=== PATIENT | female | born 1990 | race Caucasian/White ===

== ENCOUNTER 2017-09-13 13:47 | Inpatient (IN) | payer OTHER ==
[2017-09-13 17:25] VITALS: BMI 19.7
[2017-09-13] MEDS ORDERED: MAGNESIUM HYDROX 2400MG/30ML ORAL SUSPENSION 30 ML CUP PO PRN (19:07)
[2017-09-13] MEDS ORDERED: ACETAMINOPHEN 325 MG TABLET (FP) PO PRN (19:07)
[2017-09-13] MEDS ORDERED: METHADONE HCL 10 MG TABLET (FOR DETOX USE ONLY) PO ONE ×2 (19:07→23:00)
[2017-09-13] MEDS ORDERED: LOPERAMIDE HCL 2 MG CAPSULE PO PRN (19:07)
[2017-09-13] MEDS ORDERED: MAG HYDROX/AL HYDROX/SIMETH 30 ML UNIT-DOSE CUP PO PRN (19:07)
[2017-09-13] MEDS ORDERED: NICOTINE POLACRILEX 4 MG GUM BUC PRN (19:07)
[2017-09-13] MEDS ORDERED: guaiFENesin/D-METHORPHAN HB 10 ML UNIT-DOSE CUPS PO PRN (19:07)
[2017-09-13] MEDS ORDERED: P-EPHED 60MG/TRIPROLIDI 2.5MG TABLET PO PRN (19:07)
[2017-09-13] MEDS ORDERED: MENTHOL/PHENOL 1 EACH UD MM PRN (19:07)
[2017-09-13] MEDS ORDERED: MAGNESIUM CITRATE 300 ML BOTTLE PO PRN (19:07)
[2017-09-13] MEDS ORDERED: IBUPROFEN 400 MG TABLET (FP) PO PRN (19:07)
--- NOTE | 2017-09-13 19:07 | HP ---
COWS - Scale Resting Pulse: 1= [place] 81-100 Sweatin= Chills/Flushing Restless Observation: 3= Extraneous Movement Pupil Size: 0= Normal to Room Light Bone or Joint Aches: 2= Severe Diffuse Aches Runny Nose/ Eye Tearin= Runny Nose/Eyes GI Upset > 30mins: 2= Nausea/Diarrhea Tremor Observation: 2= Slight Tremor Visible Yawning Observation: 0= None Anxiety or Irritability: 2=Irritable/Anxious Goose Flesh Skin: 0=Smooth Skin COWS Score: 15 Admission [facility] Chief Complaint: withdrawal sx Allergies/Adverse Reactions: Allergies Allergy/AdvReac Type Severity Reaction Status Date / Time No Known Allergies Allergy Verified 09/13/17 17:59 History of Present Illness: 27 years old female with long history of heroin nicotine dependence has depression is admitted to detox Exam Limitations: No Limitations - Ebola screening Have you traveled outside of the country in the last 21 days: No (N) Have you had contact with anyone from an Ebola affected area: No Have you been sick,other than usual withdrawal symptoms: No Do you have a fever: No - Review of Systems Constitutional: Loss of Appetite, Changes in sleep, Unintentional Wgt. Loss, Unexplained wgt Loss EENT: reports: No Symptoms Reported Respiratory: reports: No Symptoms reported Cardiac: reports: No Symptoms Reported GI: reports: Diarrhea, Nausea, Poor Appetite, Poor Fluid Intake, Abdominal cramping : reports: No Symptoms Reported Integumentary: reports: Change in Color (both inner elbows) Neuro: reports: Tremors Endocrine: reports: No Symptoms Reported Hematology: reports: No Symptoms Reported Psychiatric: reports: Judgement Intact, Orientated x3, Anxious, Depressed Other Systems: Reviewed and Negative Patient History - Patient Medical History Hx Anemia: No Hx Asthma: No Hx Chronic Obstructive Pulmonary Disease (COPD): No Hx Cancer: No Hx Cardiac Disorders: No Hx Congestive Heart Failure: No Hx Hypertension: No Hx Hypercholesterolemia: No Hx Pacemaker: No HX Cerebrovascular Accident: No Hx Seizures: No Hx Dementia: No Hx Diabetes: No Hx Gastrointestinal Disorders: No Hx Liver Disease: No Hx Genitourinary Disorders: No Hx Sexually Transmitted Disorders: No Hx Renal Disease (ESRD): No Hx Thyroid Disease: No Hx Human Immunodeficiency Virus (HIV): No Hx Hepatitis C: No Hx Depression: Yes Hx Suicide Attempt: No Hx Bipolar Disorder: No Hx Schizophrenia: No - Patient Surgical History Past Surgical History: No Hx Neurologic Surgery: No Hx Cataract Extraction: No Hx Cardiac Surgery: No Hx Lung Surgery: No Hx Breast Surgery: No Hx Breast Biopsy: No Hx Abdominal Surgery: No Hx Appendectomy: No Hx Cholecystectomy: No Hx Genitourinary Surgery: No Hx Section: No Hx Orthopedic Surgery: No Hx Hysterectomy: No - PPD History Previous Implant?: Yes Documented Results: Negative w/o proof Implanted On Prior [facility] Admission?: No PPD to be Administered?: Yes - Reproductive History Patient is a Female of Child Bearing Age (11 -55 yrs old): Yes Last Menstrual Period: 08/13/17 Patient : No - Smoking Cessation Smoking history: Current every day smoker Have you smoked in the past 12 months: Yes Aproximately how many cigarettes per day: 20 Cigars Per Day: 0 Hx Chewing Tobacco Use: No Initiated information on smoking cessation: Yes 'Breaking Loose' booklet given: 09/13/17 - Substance & Tx. History Hx Alcohol Use: No Hx Substance Use: Yes Substance Use Type: Cocaine Hx Substance Use Treatment: No (first detox) - Substances Abused Heroin Route: Injection Frequency: Daily Amount used: 20 bags Age of first use: 22 Date of Last Use: 09/13/17 Cocaine Route: Injection Frequency: Daily Amount used: 2gm Age of first use: 27 Date of Last Use: 09/12/17 Family Disease History - Family Disease History Family Disease History: Heart Disease: Father (), Respiratory: Mother, Other: Father Admission Physical Exam BHS - Vital Signs Vital Signs: Vital Signs - 24 hr 09/13/17 17:24 Temperature 97.9 F Pulse Rate 82 Respiratory 18 Rate Blood Pressure 113/66 - Physical General Appearance: Yes: Appropriately Dressed, Mild Distress, Thin, Tremorous, Irritable, Sweating, Anxious HEENTM: Yes: Hearing grossly Normal, Normal ENT Inspection, Normocephalic, Normal Voice Respiratory: Yes: Chest Non-Tender, Lungs Clear, Normal Breath Sounds, No Respiratory Distress, No Accessory Muscle Use Neck: Yes: Supple, Trachea in good position Breast: Yes: Breasts Symetrical Cardiology: Yes: Regular Rhythm, Regular Rate, S1, S2 Abdominal: Yes: Non Tender, Soft Genitourinary: Yes: Within Normal Limits Back: Yes: Normal Inspection Musculoskeletal: Yes: full range of Motion, Gait Steady, Back pain, Muscle Pain Extremities: Yes: Normal Range of Motion, Non-Tender, Tremors Neurological: Yes: Fully Oriented, Alert, Motor Strength 5/5, Normal Response, Depressed Affect Integumentary: Yes: Warm, Track [place] Lymphatic: Yes: Within Normal Limits - Diagnostic (1) Opioid dependence with withdrawal Current Visit: Yes Status: Acute (2) Nicotine dependence Current Visit: Yes Status: Acute Qualifiers: Nicotine product type: cigarettes Substance use status: in withdrawal Qualified Code(s): F17.213 - Nicotine dependence, cigarettes, with withdrawal (3) Weight loss Current Visit: Yes Status: Acute (4) Depression (emotion) Current Visit: Yes Status: Suspected Qualifiers: Depression Type: dysthymia Qualified Code(s): F34.1 - Dysthymic disorder Cleared for Admission [facility] - Detox or Rehab [facility] Level of Care: Medically Managed Detox Regimen/Protocol: Methadone [facility] Breath Alcohol Content Breath Alcohol Content: 0 Urine Pregancy Test - Result Urine Test Results: Negative- NO Line Present Urine Drug Screen - Results Drug Screen Negative: No Urine Drug Screen Results: MARIO-Cocaine, OPI-Opiates, OXY-Oxycodone
[2017-09-13] MEDS: diazePAM 5 MG TABLET PO PRN (21:12)
[2017-09-13] MEDS: THIAMINE HCL 100 MG TABLET (FP) PO SCH (22:32)
[2017-09-13] MEDS: METHOCARBAMOL 500 MG TABLET PO SCH (22:33)
[2017-09-13 23:04] LABS: URINE APPEARANCE TURBID; URINE BILIRUBIN NEGATIVE (NEGATIVE); URINE BLOOD NEGATIVE (NEGATIVE); URINE COLOR YELLOW; URINE GLUCOSE (UA) NEGATIVE (NEGATIVE); URINE KETONE TRACE (NEGATIVE); URINE LEUK ESTERASE TRACE (NEGATIVE); URINE NITRITE NEGATIVE (NEGATIVE); URINE PROTEIN NEGATIVE (NEGATIVE)
[2017-09-14 00:24] LABS: EPI CELLS RARE /HPF (FEW); URINE BACTERIA MODERATE /hpf (NONE SEEN); URINE HYALINE CAST 14 /lpf; URINE MUCUS FEW; YEAST FEW
[2017-09-14] MEDS: METHOCARBAMOL 500 MG TABLET PO SCH ×3 (05:23→22:09)
[2017-09-14] MEDS: diazePAM 5 MG TABLET PO PRN ×2 (05:24→18:34)
[2017-09-14] MEDS ORDERED: METHADONE HCL 10 MG TABLET (FOR DETOX USE ONLY) PO ONE (10:00)
[2017-09-14 10:06] LABS: HEMATOCRIT 35.8 % (32.4-45.2); HEMOGLOBIN 11.3 GM/dL (10.7-15.3); MCH 27.6 pg (25.7-33.7); MCHC 31.6 g/dl (32.0-36.0); MEAN CELL VOLUME 87.2 fl (80-96); MEAN PLT VOLUME 8.8 fl (7.5-11.1); PLATELET COUNT 242 K/MM3 (134-434); RBC 4.11 M/mm3 (3.60-5.2); RDW 15.8 % (11.6-15.6); WHITE BLOOD COUNT 5.9 K/mm3 (4.0-10.0)
[2017-09-14] MEDS: PRENATAL VITAMINS W/ FOLIC ACID TABLET (FP) PO SCH (10:11)
[2017-09-14] MEDS: NICOTINE 21 MG/24 HOURS TOPICAL PATCH TD SCH (10:13)
[2017-09-14 10:17] LABS: ALBUMIN 2.6 g/dl (3.4-5.0); ALK PHOS 237 U/L (45-117); ANION GAP 5 (8-16); BILIRUBIN,TOTAL 0.9 mg/dL (0.2-1.0); BLOOD UREA NITROGEN 11 mg/dL (7-18); CALCIUM 8.2 mg/dL (8.5-10.1); CHLORIDE 106 mmol/L (98-107); CO2 30 mmol/L (21-32); CREATININE 0.6 mg/dL (0.55-1.02); GLUCOSE,RANDOM 80 mg/dL (74-106); POTASSIUM 4.3 mmol/L (3.5-5.1); SGOT/AST 43 U/L (15-37); SGPT/ALT 107 U/L (12-78); SODIUM 141 mmol/L (136-145); TOT PROT 6.4 g/dl (6.4-8.2)
--- NOTE | 2017-09-14 11:05 | PN ---
BHS COWS - Scale Resting Pulse: 1= [place] 81-100 Sweatin= Chills/Flushing Restless Observation: 3= Extraneous Movement Pupil Size: 1= Pupils >than Normal Bone or Joint Aches: 2= Severe Diffuse Aches Runny Nose/ Eye Tearin= Runny Nose/Eyes GI Upset > 30mins: 2= Nausea/Diarrhea Tremor Observation of Outstretched Hands: 2= Slight Tremor Visible Yawning Observation: 1= 1-2x During Session Anxiety or Irritability: 2=Irritable/Anxious Goose Flesh Skin: 0=Smooth Skin COWS Score: 17 BHS Progress Note (SOAP) Subjective: ALERT,IRRITABLE,ANXIOUS,PAIN IN THE BODY AND BACK,INTERRUPTED SLEEP,TREMOR Objective: 09/14/17 11:02 Vital Signs Temperature 98.0 F 09/14/17 10:19 Pulse Rate 100 H 09/14/17 10:19 Respiratory Rate 18 09/14/17 10:19 Blood Pressure 105/68 09/14/17 10:19 O2 Sat by Pulse Oximetry (%) 09/14/17 11:02 EKG NSR Laboratory Last Values WBC 5.9 K/mm3 (4.0-10.0) 09/14/17 07:30 RBC 4.11 M/mm3 (3.60-5.2) 09/14/17 07:30 Hgb 11.3 GM/dL (10.7-15.3) 09/14/17 07:30 Hct 35.8 % (32.4-45.2) 09/14/17 07:30 MCV 87.2 fl (80-96) 09/14/17 07:30 MCH 27.6 pg (25.7-33.7) 09/14/17 07:30 MCHC 31.6 g/dl (32.0-36.0) L 09/14/17 07:30 RDW 15.8 % (11.6-15.6) H 09/14/17 07:30 Plt Count 242 K/MM3 (134-434) 09/14/17 07:30 MPV 8.8 fl (7.5-11.1) 09/14/17 07:30 Sodium 141 mmol/L (136-145) 09/14/17 07:30 Potassium 4.3 mmol/L (3.5-5.1) 09/14/17 07:30 Chloride 106 mmol/L (98-107) 09/14/17 07:30 Carbon Dioxide 30 mmol/L (21-32) 09/14/17 07:30 Anion Gap 5 (8-16) L 09/14/17 07:30 BUN 11 mg/dL (7-18) 09/14/17 07:30 Creatinine 0.6 mg/dL (0.55-1.02) 09/14/17 07:30 Creat Clearance w eGFR > 60 (>60) 09/14/17 07:30 Random Glucose 80 mg/dL (74-106) 09/14/17 07:30 Calcium 8.2 mg/dL (8.5-10.1) L 09/14/17 07:30 Total Bilirubin 0.9 mg/dL (0.2-1.0) 09/14/17 07:30 AST 43 U/L (15-37) H 09/14/17 07:30 ALT 107 U/L (12-78) H 09/14/17 07:30 Alkaline Phosphatase 237 U/L (45-117) H 09/14/17 07:30 Total Protein 6.4 g/dl (6.4-8.2) 09/14/17 07:30 Albumin 2.6 g/dl (3.4-5.0) L 09/14/17 07:30 Urine Color Yellow 09/13/17 21:00 Urine Appearance Turbid 09/13/17 21:00 Urine pH 5.0 (5.0-8.0) 09/13/17 21:00 Ur Specific [place] 1.031 (1.001-1.035) 09/13/17 21:00 Urine Protein Negative (NEGATIVE) 09/13/17 21:00 Urine Glucose (UA) Negative (NEGATIVE) 09/13/17 21:00 Urine Ketones Trace (NEGATIVE) H 09/13/17 21:00 Urine Blood Negative (NEGATIVE) 09/13/17 21:00 Urine Nitrite Negative (NEGATIVE) 09/13/17 21:00 Urine Bilirubin Negative (NEGATIVE) 09/13/17 21:00 Urine Urobilinogen 2.0 mg/dL (0.2-1.0) H 09/13/17 21:00 Ur Leukocyte Esterase Trace (NEGATIVE) 09/13/17 21:00 Urine WBC (Auto) 31 /hpf (3-5) 09/13/17 21:00 Urine RBC (Auto) None /hpf (0-3) 09/13/17 21:00 Ur Epithelial Cells Rare /HPF (FEW) 09/13/17 21:00 Urine Bacteria Moderate /hpf (NONE SEEN) 09/13/17 21:00 Hyaline Casts 14 /lpf 09/13/17 21:00 Urine Mucus Few 09/13/17 21:00 Urine Yeast Few 09/13/17 21:00 09/14/17 11:04 LABS PENDING Assessment: 09/14/17 11:04 WITHDRAWAL SYMPTOM Plan: CONTINUE DETOX,ENCOURAGE ORAL FLUID,REPEAT UA,ELEVATION OF ALT,AST WILL D/C TYLENOL
--- NOTE | 2017-09-14 11:22 | CONSULT ---
[facility] Psychiatric Consult - Data Date of interview: 09/14/17 Admission source: [facility] Identifying data: Pt. is a 27 year old female, single, mother of one, and is currently unemployed. Substance Abuse History: Following information confirmed with Mr. Lynch: - Smoking Cessation. Smoking history: Current every day smoker. Have you smoked in the past 12 months: Yes. Aproximately how many cigarettes per day: 20. Cigars Per Day: 0. Hx Chewing Tobacco Use: No. Initiated information on smoking cessation: Yes. 'Breaking Loose' booklet given: 09/13/17. - Substance & Tx. History. Hx Alcohol Use: No. Hx Substance Use: Yes. Substance Use Type : Cocaine. Hx Substance Use Treatment: No (first detox). - Substances Abused. Heroin. Route: Injection. Frequency: Daily. Amount used: 20 bags. Age of first use: 22. Date of Last Use: 09/13/17. Cocaine. Route: Injection. Frequency: Daily. Amount used: 2gm. Age of first use: 27. Date of Last Use: 09/12/17 Medical History: Denies. Psychiatric History: Pt. denies h/o psychiatric hospitalization, suicide attempts and OPC. Pt. reports one episode at 25 years of age of self injuriours behavior in which she superfically cut her left forearm (No stitches or medical care provided) after feeling guilty for choosing drugs over her child. Pt. stated it was not a suicide attempt. Pt. currently denies suicidal and homicidal ideation. Physical/Sexual Abuse/Trauma History: Denies. Mental Status Exam - Mental Status Exam Alert and Oriented to: Time, Place, Person Cognitive Function: Good Patient Appearance: Unkempt Mood: Happy Affect: Mood Congruent Voice Loudness: Normal Thought Process: Goal Oriented Thought Disorder: Not Present Hallucinations: Denies Suicidal Ideation: Denies Homicidal Ideation: Denies Insight/Judgement: Poor Sleep: Fair Appetite: Fair Muscle strength/Tone: Normal Gait/Station: Normal Psychiatric Findings - Problem List ([place] 1, 2,3) (1) Opioid dependence with withdrawal Current Visit: Yes Status: Acute (2) Cocaine dependence Current Visit: Yes Status: Acute (3) Nicotine dependence Current Visit: Yes Status: Acute Qualifiers: Nicotine product type: cigarettes Substance use status: in withdrawal Qualified Code(s): F17.213 - Nicotine dependence, cigarettes, with withdrawal (4) Substance induced mood disorder Current Visit: No Status: Suspected - Initial Treatment Plan Initial Treatment Plan: Psychoeducation provided. Detoxification in progress. Vistaril 25mg q4 prn ordered for anxiety. Verbal consent given. Benefits and side effects discussed. Will continue to monitor.
[2017-09-14] MEDS: THIAMINE HCL 100 MG TABLET (FP) PO SCH (22:09)
[2017-09-14] MEDS: cloNIDine HCL 0.1 MG TABLET PO SCH (22:10)
[2017-09-15] MEDS: diazePAM 5 MG TABLET PO PRN ×5 (02:21→22:07)
[2017-09-15] MEDS: METHOCARBAMOL 500 MG TABLET PO SCH ×3 (05:12→22:07)
[2017-09-15] MEDS: hydrOXYzine PAMOATE 25 MG CAPSULE (FP) PO PRN ×2 (09:16→14:55)
[2017-09-15] MEDS ORDERED: METHADONE HCL 5 MG TABLET (FOR DETOX USE ONLY) PO ONE (10:00)
[2017-09-15] MEDS: PRENATAL VITAMINS W/ FOLIC ACID TABLET (FP) PO SCH (10:14)
[2017-09-15] MEDS: NICOTINE 21 MG/24 HOURS TOPICAL PATCH TD SCH (10:15)
[2017-09-15] MEDS: cloNIDine HCL 0.1 MG TABLET PO SCH ×2 (10:16→22:07)
--- NOTE | 2017-09-15 10:35 | PN ---
BHS COWS - Scale Resting Pulse: 1= [place] 81-100 Sweatin= Chills/Flushing Restless Observation: 3= Extraneous Movement Pupil Size: 1= Pupils >than Normal Bone or Joint Aches: 2= Severe Diffuse Aches Runny Nose/ Eye Tearin= Runny Nose/Eyes GI Upset > 30mins: 2= Nausea/Diarrhea Tremor Observation of Outstretched Hands: 2= Slight Tremor Visible Yawning Observation: 1= 1-2x During Session Anxiety or Irritability: 2=Irritable/Anxious Goose Flesh Skin: 0=Smooth Skin COWS Score: 17 BHS Progress Note (SOAP) Subjective: ALERT,IRRITABLE,ANXIOUS,INTERRUPTED SLEEP,TREMOR,PAIN IN THE BODY AND BACK Objective: 09/15/17 10:34 Vital Signs Temperature 99.9 F H 09/15/17 10:20 Pulse Rate 83 09/15/17 10:20 Respiratory Rate 18 09/15/17 10:20 Blood Pressure 100/62 09/15/17 10:20 O2 Sat by Pulse Oximetry (%) 09/15/17 10:35 Laboratory Results - last 24 hr 09/14/17 09/14/17 07:30 08:00 RPR Titer Nonreactive HIV 1&2 Antibody Screen Negative HIV P24 Antigen Negative 09/15/17 10:36 REPEAT UA PENDING Assessment: 09/15/17 10:36 WITHDRAWAL SYMPTOM Plan: CONTINUE DETOX
[2017-09-15 10:41] LABS: URINE APPEARANCE CLOUDY; URINE BILIRUBIN NEGATIVE (NEGATIVE); URINE BLOOD NEGATIVE (NEGATIVE); URINE COLOR YELLOW; URINE GLUCOSE (UA) NEGATIVE (NEGATIVE); URINE KETONE NEGATIVE (NEGATIVE); URINE LEUK ESTERASE TRACE (NEGATIVE); URINE NITRITE NEGATIVE (NEGATIVE); URINE PROTEIN NEGATIVE (NEGATIVE); URINE UROBILINOGEN NEGATIVE mg/dL (0.2-1.0)
[2017-09-15 10:54] LABS: EPI CELLS MODERATE /HPF (FEW); URINE BACTERIA FEW /hpf (NONE SEEN); URINE MUCUS RARE
--- NOTE | 2017-09-15 17:11 | EKG ---
Test Reason : Blood Pressure : / mmHG Vent. Rate : 074 BPM Atrial Rate : 074 BPM P-R Int : 146 ms QRS Dur : 082 ms QT Int : 392 ms P-R-T Axes : -12 098 049 degrees QTc Int : 435 ms NORMAL SINUS RHYTHM RIGHTWARD AXIS BORDERLINE ECG NO PREVIOUS ECGS AVAILABLE Confirmed by ALEX LEDESMA MD ([id number]) on 09/15/2017 5:10:55 PM Referred By: Confirmed By:ALEX LEDESMA MD
[2017-09-15] MEDS: THIAMINE HCL 100 MG TABLET (FP) PO SCH (22:07)
[2017-09-15] MEDS: CYCLOBENZAPRINE HCL 10 MG TABLET (FP) PO PRN (22:07)
[2017-09-16] MEDS: METHOCARBAMOL 500 MG TABLET PO SCH ×3 (05:39→23:02)
[2017-09-16] MEDS: hydrOXYzine PAMOATE 25 MG CAPSULE (FP) PO PRN ×4 (05:41→22:23)
[2017-09-16] MEDS ORDERED: METHADONE HCL 5 MG TABLET (FOR DETOX USE ONLY) PO ONE (10:00)
[2017-09-16] MEDS: PRENATAL VITAMINS W/ FOLIC ACID TABLET (FP) PO SCH (10:14)
[2017-09-16] MEDS: NICOTINE 21 MG/24 HOURS TOPICAL PATCH TD SCH (10:14)
[2017-09-16] MEDS: cloNIDine HCL 0.1 MG TABLET PO SCH ×2 (10:14→22:23)
[2017-09-16] MEDS: diazePAM 5 MG TABLET PO PRN ×3 (10:15→18:58)
--- NOTE | 2017-09-16 13:00 | PN ---
BHS Progress Note (SOAP) Subjective: general body aches sweating restlessness alert Objective: 09/16/17 12:59 Vital Signs Temperature 100.4 F H 09/16/17 10:00 Pulse Rate 80 09/16/17 10:00 Respiratory Rate 20 09/16/17 10:00 Blood Pressure 111/61 09/16/17 10:00 O2 Sat by Pulse Oximetry (%) Laboratory Last Values WBC 5.9 K/mm3 (4.0-10.0) 09/14/17 07:30 RBC 4.11 M/mm3 (3.60-5.2) 09/14/17 07:30 Hgb 11.3 GM/dL (10.7-15.3) 09/14/17 07:30 Hct 35.8 % (32.4-45.2) 09/14/17 07:30 MCV 87.2 fl (80-96) 09/14/17 07:30 MCH 27.6 pg (25.7-33.7) 09/14/17 07:30 MCHC 31.6 g/dl (32.0-36.0) L 09/14/17 07:30 RDW 15.8 % (11.6-15.6) H 09/14/17 07:30 Plt Count 242 K/MM3 (134-434) 09/14/17 07:30 MPV 8.8 fl (7.5-11.1) 09/14/17 07:30 Sodium 141 mmol/L (136-145) 09/14/17 07:30 Potassium 4.3 mmol/L (3.5-5.1) 09/14/17 07:30 Chloride 106 mmol/L (98-107) 09/14/17 07:30 Carbon Dioxide 30 mmol/L (21-32) 09/14/17 07:30 Anion Gap 5 (8-16) L 09/14/17 07:30 BUN 11 mg/dL (7-18) 09/14/17 07:30 Creatinine 0.6 mg/dL (0.55-1.02) 09/14/17 07:30 Creat Clearance w eGFR > 60 (>60) 09/14/17 07:30 Random Glucose 80 mg/dL (74-106) 09/14/17 07:30 Calcium 8.2 mg/dL (8.5-10.1) L 09/14/17 07:30 Total Bilirubin 0.9 mg/dL (0.2-1.0) 09/14/17 07:30 AST 43 U/L (15-37) H 09/14/17 07:30 ALT 107 U/L (12-78) H 09/14/17 07:30 Alkaline Phosphatase 237 U/L (45-117) H 09/14/17 07:30 Total Protein 6.4 g/dl (6.4-8.2) 09/14/17 07:30 Albumin 2.6 g/dl (3.4-5.0) L 09/14/17 07:30 Urine Color Yellow 09/15/17 08:30 Urine Appearance Cloudy 09/15/17 08:30 Urine pH 6.0 (5.0-8.0) 09/15/17 08:30 Ur Specific [place] 1.017 (1.001-1.035) 09/15/17 08:30 Urine Protein Negative (NEGATIVE) 09/15/17 08:30 Urine Glucose (UA) Negative (NEGATIVE) 09/15/17 08:30 Urine Ketones Negative (NEGATIVE) 09/15/17 08:30 Urine Blood Negative (NEGATIVE) 09/15/17 08:30 Urine Nitrite Negative (NEGATIVE) 09/15/17 08:30 Urine Bilirubin Negative (NEGATIVE) 09/15/17 08:30 Urine Urobilinogen Negative mg/dL (0.2-1.0) 09/15/17 08:30 Ur Leukocyte Esterase Trace (NEGATIVE) 09/15/17 08:30 Urine WBC (Auto) 6 /hpf (3-5) 09/15/17 08:30 Urine RBC (Auto) 2 /hpf (0-3) 09/15/17 08:30 Ur Epithelial Cells Moderate /HPF (FEW) 09/15/17 08:30 Urine Bacteria Few /hpf (NONE SEEN) 09/15/17 08:30 Hyaline Casts 14 /lpf 09/13/17 21:00 Urine Mucus Rare 09/15/17 08:30 Urine Yeast Few 09/13/17 21:00 RPR Titer Nonreactive (NONREACTIVE) 09/14/17 08:00 HIV 1&2 Antibody Screen Negative 09/14/17 07:30 HIV P24 Antigen Negative 09/14/17 07:30 lab noted Assessment: 09/16/17 12:59 withdrawal sx Plan: continue detox
[2017-09-16] MEDS: CYCLOBENZAPRINE HCL 10 MG TABLET (FP) PO PRN (22:23)
[2017-09-16] MEDS: THIAMINE HCL 100 MG TABLET (FP) PO SCH (22:23)
[2017-09-17] MEDS: hydrOXYzine PAMOATE 25 MG CAPSULE (FP) PO PRN ×4 (03:26→22:18)
[2017-09-17] MEDS: METHOCARBAMOL 500 MG TABLET PO SCH ×3 (05:56→22:18)
[2017-09-17] MEDS ORDERED: METHADONE HCL 10 MG TABLET (FOR DETOX USE ONLY) PO ONE (10:00)
[2017-09-17] MEDS: cloNIDine HCL 0.1 MG TABLET PO SCH ×3 (10:55→22:18)
[2017-09-17] MEDS: PRENATAL VITAMINS W/ FOLIC ACID TABLET (FP) PO SCH (10:55)
[2017-09-17] MEDS: NICOTINE 21 MG/24 HOURS TOPICAL PATCH TD SCH (10:57)
--- NOTE | 2017-09-17 13:37 | PN ---
S Progress Note (SOAP) Subjective: ALERT,IRRITABLE,INTERRUPTED SLEEP,PAIN IN THE BODY Objective: 09/17/17 13:36 Vital Signs Temperature 97.9 F 09/17/17 11:55 Pulse Rate 91 H 09/17/17 11:55 Respiratory Rate 18 09/17/17 11:55 Blood Pressure 99/70 09/17/17 11:55 O2 Sat by Pulse Oximetry (%) Assessment: 09/17/17 13:36 WITHDRAWAL SYMPTOM Plan: CONTINUE DETOX,DISCHARGE IN AM
[2017-09-17] MEDS: CYCLOBENZAPRINE HCL 10 MG TABLET (FP) PO PRN (22:18)
[2017-09-17] MEDS: THIAMINE HCL 100 MG TABLET (FP) PO SCH (22:18)
[2017-09-18] MEDS: METHOCARBAMOL 500 MG TABLET PO SCH (05:52)
[2017-09-18] MEDS: hydrOXYzine PAMOATE 25 MG CAPSULE (FP) PO PRN (05:54)
[2017-09-18] MEDS ORDERED: METHADONE HCL 5 MG TABLET (FOR DETOX USE ONLY) PO ONE (06:00)
--- NOTE | 2017-09-18 08:30 | DS ---
[facility] Detox Discharge Summary Admission Date: 09/13/17 Discharge Date: 09/18/17 - History Present History: Opioid Dependence - Physical Exam Results Vital Signs: Vital Signs Temperature 97.3 F L 09/18/17 06:44 Pulse Rate 81 09/18/17 06:44 Respiratory Rate 18 09/18/17 06:44 Blood Pressure 96/58 09/18/17 06:44 O2 Sat by Pulse Oximetry (%) - Treatment Hospital Course: Detox Protocol Followed, Detoxed Safely, Responded well, Discharged Condition Good, Rehab Referral Accepted - Medication Discharge Medications: Ambulatory Orders NK [No Known Home Medication] 09/13/17 - Diagnosis (1) Cocaine dependence Current Visit: Yes Status: Chronic Qualifiers: Substance use status: uncomplicated Qualified Code(s): F14.20 - Cocaine dependence, uncomplicated (2) Nicotine dependence Current Visit: Yes Status: Acute Qualifiers: Nicotine product type: cigarettes Substance use status: uncomplicated Qualified Code(s): F17.210 - Nicotine dependence, cigarettes, uncomplicated (3) Opioid dependence with withdrawal Current Visit: Yes Status: Chronic (4) Weight loss Current Visit: Yes Status: Acute (5) Depression (emotion) Current Visit: Yes Status: Suspected Qualifiers: Depression Type: dysthymia Qualified Code(s): F34.1 - Dysthymic disorder (6) Substance induced mood disorder Current Visit: No Status: Suspected - AMA Did Patient Leave Against Medical Advice: No
[2017-09-18] MEDS: cloNIDine HCL 0.1 MG TABLET PO SCH (10:21)
[2017-09-18] MEDS: PRENATAL VITAMINS W/ FOLIC ACID TABLET (FP) PO SCH (10:21)
[2017-09-18] MEDS: NICOTINE 21 MG/24 HOURS TOPICAL PATCH TD SCH (10:21)
[2017-09-18 10:36] VITALS: BP 111/63; PULSE 110; TEMP 97.7
== END 2017-09-18 12:02 | disposition home or self-care (01) | DRG 773 ==
LOC: YASAS 13:47 → Y6N 18:58
PROVIDERS: ADMIT Internal Medicine; ATTEND Internal Medicine
PROC: HZ2ZZZZ Detoxification Services for Substance Abuse Treatment (ICD-10-PCS; principal; 2017-09-13)
DX: F11.23 Opioid dependence with withdrawal (principal); F14.20 Cocaine dependence, uncomplicated; F17.210 Nicotine dependence, cigarettes, uncomplicated; F34.1 Dysthymic disorder; F19.24 Other psychoactive substance dependence with psychoactive substance-induced mood disorder; Z87.898 Personal history of other specified conditions
CPT/HCPCS: 36415; 80053; 81003; 81015; 85027; 86593; 87389; 93005; 93010

== ENCOUNTER 2021-11-09 10:03 | Inpatient (IN) | payer OTHER ==
[2021-11-09 10:14] VITALS: BMI 21.0
[2021-11-09] MEDS ORDERED: VANCOMYCIN 1 GM in D5W (PRE-DOCKED) 1,000 MG/250 ML IVPB ONE (13:01)
[2021-11-09] MEDS ORDERED: VANCOMYCIN 1 GRAM (PRE-DOCKED) 1,000 MG/250 ML BAG IVPB ONE (15:25)
[2021-11-09 15:31] LABS: BASO % 0.3 % (0-2.0); EOS % 2.8 % (0-4.5); HEMOGLOBIN 9.8 GM/dL (10.7-15.3); LYMPH % 23.3 % (8-40); MCHC 32.6 g/dl (32.0-36.0); MEAN CELL VOLUME 73.8 fl (80-96); MEAN PLT VOLUME 6.8 fl (7.5-11.1); MONO % 6.8 % (3.8-10.2); NEUT % 66.8 % (42.8-82.8); PLATELET COUNT 365 10^3/uL (134-434); RBC 4.07 M/mm3 (3.60-5.2); RDW 16.3 % (11.6-15.6); WHITE BLOOD COUNT 6.7 K/mm3 (4.0-10.0)
[2021-11-09] MEDS ORDERED: SODIUM CHLORIDE 1,000 ML IV STA ×2 (15:58→17:56)
[2021-11-09 16:09] LABS: CALCIUM 8.9 mg/dL (8.5-10.1)
[2021-11-09 16:10] LABS: BLOOD UREA NITROGEN 12.4 mg/dL (7-18)
[2021-11-09 16:13] LABS: CREATININE 0.6 mg/dL (0.55-1.3)
[2021-11-09 16:14] LABS: BILIRUBIN,TOTAL 0.2 mg/dL (0.2-1)
[2021-11-09] MEDS ORDERED: SODIUM CHLORIDE 0.9% 500 ML INFUS.BAG IV ONE (17:03)
[2021-11-09] MEDS ORDERED: SODIUM CHLORIDE 1,000 ML IV SCH (18:00)
[2021-11-09] MEDS ORDERED: ACETAMINOPHEN 325 MG TABLET (FP) PO PRN (18:13)
[2021-11-09] MEDS ORDERED: methaDONE HCL 10 MG TABLET PO ONE (18:13)
[2021-11-09] MEDS ORDERED: cloNIDine HCL 0.1 MG TABLET PO PRN (18:13)
[2021-11-09 20:16] LABS: RETICULOCYTES 1.54 % (0.5-1.5)
[2021-11-09 22:28] LABS: URINE APPEARANCE CLEAR; URINE BILIRUBIN NEGATIVE (NEGATIVE); URINE COLOR YELLOW; URINE GLUCOSE (UA) NEGATIVE (NEGATIVE); URINE KETONE NEGATIVE (NEGATIVE); URINE LEUK ESTERASE NEGATIVE (NEGATIVE); URINE NITRITE NEGATIVE (NEGATIVE); URINE PROTEIN NEGATIVE (NEGATIVE); URINE UROBILINOGEN 0.2 mg/dL (0.2-1.0)
[2021-11-09 22:31] LABS: HCG,QUALITATIVE URINE Negative
[2021-11-09 23:14] LABS: URINE AMPHETAMINES NEGATIVE (NEGATIVE); URINE BARBITURATES NEGATIVE (NEGATIVE)
[2021-11-09 23:15] LABS: METHADONE, UR NEGATIVE (NEGATIVE); PHENCYCLIDINE,URINE NEGATIVE (NEGATIVE); URINE BENZODIAZEPINES NEGATIVE (NEGATIVE)
[2021-11-09 23:17] LABS: COCAINE, UR POSITIVE (NEGATIVE); OPIATES, URI POSITIVE (NEGATIVE)
[2021-11-10 07:51] LABS: BASO % 0.4 % (0-2.0); EOS % 1.8 % (0-4.5); HEMATOCRIT 26.2 % (32.4-45.2); HEMOGLOBIN 8.4 GM/dL (10.7-15.3); LYMPH % 23.1 % (8-40); MCH 23.8 pg (25.7-33.7); MEAN CELL VOLUME 74.3 fl (80-96); MEAN PLT VOLUME 7.4 fl (7.5-11.1); MONO % 6.1 % (3.8-10.2); NEUT % 68.6 % (42.8-82.8); PLATELET COUNT 299 10^3/uL (134-434); RBC 3.52 M/mm3 (3.60-5.2); RDW 16.1 % (11.6-15.6); WHITE BLOOD COUNT 6.2 K/mm3 (4.0-10.0)
[2021-11-10 08:07] LABS: CALCIUM 7.7 mg/dL (8.5-10.1)
[2021-11-10 08:08] LABS: BLOOD UREA NITROGEN 4.1 mg/dL (7-18); MAGNESIUM 2.1 mg/dL (1.8-2.4)
[2021-11-10 08:11] LABS: CREATININE 0.4 mg/dL (0.55-1.3); PHOSPHOROUS 2.6 mg/dL (2.5-4.9)
[2021-11-10 08:12] LABS: BILIRUBIN,TOTAL 0.3 mg/dL (0.2-1)
[2021-11-10 08:19] LABS: ALBUMIN 2.2 g/dl (3.4-5.0); TOT PROT 6.8 g/dl (6.4-8.2)
[2021-11-10] MEDS ORDERED: VANCOMYCIN 1 GM in D5W (PRE-DOCKED) 1,000 MG/250 ML IVPB SCH ×3 (10:00→15:00)
[2021-11-10] MEDS ORDERED: CEFTRIAXONE 2 GM-D5W BAG 2 GM/50 ML BAG IVPB SCH (10:00)
[2021-11-10] MEDS ORDERED: CEFTRIAXONE 2 GM in DEXTROSE 5%-WATER 100 ML IVPB SCH (10:00)
[2021-11-10] MEDS ORDERED: NICOTINE 21 MG/24 HOURS TOPICAL PATCH TD SCH (10:00)
[2021-11-10] MEDS ORDERED: ENOXAPARIN NA (PORCINE) 40 MG/0.4 ML DISP.SYRIN SQ SCH (10:00)
[2021-11-10] MEDS ORDERED: CEFTRIAXONE 2 GM/100 ML BAG IVPB ONE (10:09)
[2021-11-10] MEDS ORDERED: ENOXAPARIN NA (PORCINE) 40 MG/0.4 ML DISP.SYRIN SQ ONE (10:11)
[2021-11-10 12:02] VITALS: BP 95/52; PULSE 73; TEMP 98.1
[2021-11-10 13:02] LABS: HIV INTERPRETATION NEGATIVE (NEGATIVE)
[2021-11-10 13:07] LABS: SARS-CoV-2 NAA Not Detected (Not Detected)
[2021-11-11] MEDS ORDERED: methaDONE HCL 10 MG TABLET PO ONE (10:00)
[2021-11-11] MEDS ORDERED: VANCOMYCIN 1 GM in D5W (PRE-DOCKED) 1,000 MG/250 ML IVPB SCH (10:00)
[2021-11-13] MEDS ORDERED: methaDONE HCL 10 MG TABLET PO ONE (10:00)
== END 2021-11-10 16:24 | disposition left against medical advice (07) | DRG 383 ==
LOC: JER 10:03 → JERBED 15:58
PROVIDERS: ADMIT Internal Medicine; ATTEND Internal Medicine
PROC: HZ2ZZZZ Detoxification Services for Substance Abuse Treatment (ICD-10-PCS; principal; 2021-11-09)
DX: L03.116 Cellulitis of left lower limb (principal); L02.416 Cutaneous abscess of left lower limb; L03.115 Cellulitis of right lower limb; I38 Endocarditis, valve unspecified; L02.415 Cutaneous abscess of right lower limb; F32.A Depression, unspecified; D64.9 Anemia, unspecified; F14.20 Cocaine dependence, uncomplicated; F19.20 Other psychoactive substance dependence, uncomplicated; I07.9 Rheumatic tricuspid valve disease, unspecified; D50.9 Iron deficiency anemia, unspecified; F11.129 Opioid abuse with intoxication, unspecified
CPT/HCPCS: 36415; 71046-TC-FY; 76882-TC-RT-FY; 80053; 80307; 81003; 82728; 83540; 83550; 83605; 83615; 83735; 84100; 84155; 84165; 84703; 85025; 85045; 86359; 86360; 87040; 87086; 87389; 93005; 93010; 93306-TC; 99285-25; C9803; U0003; U0005

== ENCOUNTER 2023-02-28 03:00 | Inpatient (IN) | payer OTHER ==
[2023-02-28] MEDS ORDERED: ACETAMINOPHEN INJECTION 100 ML IVPB ONE (03:31)
[2023-02-28] MEDS ORDERED: SODIUM CHLORIDE 0.9% 500 ML INFUS.BAG IV ONE ×2 (04:09→06:38)
[2023-02-28] MEDS ORDERED: ACETAMINOPHEN 1000 MG/100 ML BAG IVPB ONE (04:09)
[2023-02-28 04:46] LABS: BASO % 0.1 % (0-2.0); EOS % 0.2 % (0-4.5); HEMATOCRIT 31.9 % (32.4-45.2); HEMOGLOBIN 10.1 GM/dL (10.7-15.3); MCH 22.6 pg (25.7-33.7); MCHC 31.7 g/dl (32.0-36.0); MEAN CELL VOLUME 71.4 fl (80-96); MEAN PLT VOLUME 7.1 fl (7.5-11.1); MONO % 4.2 % (3.8-10.2); NEUT % 90.5 % (42.8-82.8); PLATELET COUNT 242 10^3/uL (134-434); RBC 4.47 M/mm3 (3.60-5.2); RDW 17.1 % (11.6-15.6)
[2023-02-28 04:59] LABS: INR 1.18 (0.83-1.09); PROTHROMBIN TIME (PATIENT) 13.7 SEC (9.7-13.0)
[2023-02-28 05:01] LABS: ACTIVATED PTT 35.9 SECONDS (25.2-36.5)
[2023-02-28 05:02] LABS: POTASSIUM 3.4 mmol/L (3.5-5.1)
[2023-02-28 05:04] LABS: CALCIUM 8.9 mg/dL (8.5-10.1)
[2023-02-28 05:05] LABS: ALBUMIN 3.7 g/dl (3.4-5.0); BLOOD UREA NITROGEN 12.1 mg/dL (7-18)
[2023-02-28 05:09] LABS: CREATININE 0.7 mg/dL (0.55-1.3)
[2023-02-28 05:10] LABS: BILIRUBIN,TOTAL 0.4 mg/dL (0.2-1); TOT PROT 8.8 g/dl (6.4-8.2)
[2023-02-28 05:22] LABS: LACTIC ACID 2.3 mmol/L (0.4-2.0)
[2023-02-28] MEDS ORDERED: VANCOMYCIN 1 GM in D5W (PRE-DOCKED) 1,000 MG/250 ML (RESTRICTED TO ID ONLY IVPB ONE (05:32)
[2023-02-28] MEDS ORDERED: PIPERACILLIN/TAZOB 3.375 GM 3.375 GM/50 ML BAG IVPB ONE (05:33)
[2023-02-28] MEDS ORDERED: VANCOMYCIN/WATER FOR INJ (PEG) 1,000 MG/200 ML BAG IVPB ONE ×3 (05:33→22:00)
[2023-02-28] MEDS ORDERED: PIPERACILLIN/TAZOB 4.5 GM 4.5 GM in DEXTROSE 5%-WATER 100 ML IVPB ONE (05:33)
[2023-02-28] MEDS ORDERED: PIPERACILLIN/TAZOB 4.5 GM 4.5 GM/100 ML BAG IVPB ONE (05:48)
[2023-02-28 09:59] LABS: ERYTHROCYTE SEDIMENTATION RATE 106 mm/hr (0-20)
[2023-02-28] MEDS ORDERED: ACETAMINOPHEN 500 MG TABLET (FP) PO PRN (12:17)
[2023-02-28] MEDS ORDERED: LACTATED RINGERS SOLUTION 1,000 ML/1,000 ML INFUS.BAG IV SCH (12:30)
[2023-02-28 15:47] VITALS: RESP 18; BMI 28.5
[2023-02-28] MEDS: VANCOMYCIN/WATER FOR INJ (PEG) 1,000 MG/200 ML BAG IVPB SCH (17:32)
[2023-02-28] MEDS ORDERED: NALOXONE HCL 0.4 MG/ML VIAL IVPUSH ONE (18:00)
[2023-02-28] MEDS: PIPERACILLIN/TAZOB 3.375 GM 3.375 GM in DEXTROSE 5%-WATER - 50 ML IVPB SCH (18:26)
[2023-02-28 18:53] LABS: URINE BARBITURATES NEGATIVE (NEGATIVE)
[2023-02-28 18:54] LABS: METHADONE, UR NEGATIVE (NEGATIVE); PHENCYCLIDINE,URINE NEGATIVE (NEGATIVE); URINE AMPHETAMINES NEGATIVE (NEGATIVE); URINE BENZODIAZEPINES NEGATIVE (NEGATIVE)
[2023-02-28 19:01] LABS: COCAINE, UR POSITIVE (NEGATIVE); OPIATES, URI POSITIVE (NEGATIVE)
[2023-02-28] MEDS ORDERED: VANCOMYCIN 1 GM in D5W (PRE-DOCKED) 1,000 MG/250 ML (RESTRICTED TO ID ONLY IVPB SCH (22:00)
[2023-02-28] MEDS: HEPARIN NA (PORCINE) 5,000 UNITS/ML 1ML VIAL SQ SCH (23:00)
[2023-03-01] MEDS: PIPERACILLIN/TAZOB 3.375 GM 3.375 GM in DEXTROSE 5%-WATER - 50 ML IVPB SCH ×2 (03:41→10:04)
[2023-03-01] MEDS ORDERED: VANCOMYCIN/WATER FOR INJ (PEG) 1,000 MG/200 ML BAG IVPB SCH (05:00)
[2023-03-01] MEDS: VANCOMYCIN/WATER FOR INJ (PEG) 1,000 MG/200 ML BAG IVPB SCH (06:00)
[2023-03-01] MEDS ORDERED: CEFTRIAXONE 2 GM in DEXTROSE 5%-WATER 100 ML IVPB SCH (10:00)
[2023-03-01] MEDS: HEPARIN NA (PORCINE) 5,000 UNITS/ML 1ML VIAL SQ SCH (10:04)
[2023-03-01 11:26] VITALS: BP 110/61; PULSE 74; TEMP 98.7
== END 2023-03-01 11:23 | disposition left against medical advice (07) | DRG 720 ==
LOC: JER 03:00 → JERBED 13:12 → J6S 14:43
PROVIDERS: ADMIT Internal Medicine; ATTEND Internal Medicine
DX: A41.89 Other specified sepsis (principal); R50.9 Fever, unspecified; N93.9 Abnormal uterine and vaginal bleeding, unspecified; O03.9 Complete or unspecified spontaneous abortion without complication; F14.20 Cocaine dependence, uncomplicated; F11.10 Opioid abuse, uncomplicated; R00.0 Tachycardia, unspecified; E87.6 Hypokalemia; D64.9 Anemia, unspecified
CPT/HCPCS: 0241U-QW; 36415; 70450-TC; 71045-TC-FY; 76830-TC; 80053; 80307; 83605; 84702; 85025; 85610; 85651; 85730; 86140; 86850; 86900; 86901; 87040; 93005; 93010; 93306-TC; 99285-25; J1644